=== PATIENT | male | born 2000 | race African-American/Black ===

== ENCOUNTER 2024-02-03 12:30 | Emergency (ER) | payer SELFPAY ==
[~2024-02-03] VITALS: Ht 180.3 cm; Wt 86.2 kg
[2024-02-03 12:32] VITALS: BP_SYST 115; PULSE 48; RESP 16; TEMP 98.2; O2SAT 96
[2024-02-03 13:31] LABS: BASOPHILS # (AUTO) 0.1 K/uL (0.0-0.2); BASOPHILS % (AUTO) 0.8 % (0.0-2.0); EOSINOPHILS # (AUTO) 0.2 K/uL (0.0-0.4); EOSINOPHILS % (AUTO) 2.5 % (0.0-4.0); HEMATOCRIT 38.2 % (36-54); HEMOGLOBIN 12.6 g/dL (14.0-18.0); LYMPHOCYTES # (AUTO) 2.3 K/uL (1.0-5.5); LYMPHOCYTES % (AUTO) 29.4 % (20.5-51.5); MEAN CORPUSCULAR HEMOGLOBIN 31 pg (27-31); MEAN CORPUSCULAR HGB CONC 33 % (32-36); MEAN CORPUSCULAR VOLUME 93 fL (79.0-98.0); MONOCYTES # (AUTO) 0.8 K/uL (0.0-1.0); MONOCYTES % (AUTO) 9.9 % (1.7-9.3); NEUTROPHILS # (AUTO) 4.4 K/uL (1.8-7.7); NEUTROPHILS % (AUTO) 57.4 % (40.0-70.0); PLATELET COUNT (AUTO) 250 K/uL (130-430); RED BLOOD CELL COUNT(AUTO) 4.11 MIL/uL (4.2-6.2); RED CELL DISTRIBUTION WIDTH 12.7 % (9.0-15.0); WHITE BLOOD COUNT (AUTO) 7.7 K/uL (4.8-10.8)
[2024-02-03 13:51] LABS: PROTHROMBIN TIME 10.4 SECS (9.5-12.5)
[2024-02-03 14:03] LABS: ANION GAP 4 (5-15); CALCIUM 8.6 mg/dL (8.4-11.0); CARBON DIOXIDE 31 mmol/L (23-29); CHLORIDE 106 mmol/L (98-107); CREATININE 0.96 mg/dL (0.55-1.30); GFR AFRICAN AMERICAN 124 mL/min (>90); GLUCOSE 85 mg/dL (74-106); SODIUM SERUM 141 mmol/L (136-145); UREA NITROGEN, BLOOD 12 mg/dL (8-21)
[2024-02-03 14:05] LABS: GFR NON AFRICAN-AMERICAN 102 mL/min (>90)
[2024-02-03 14:10] LABS: ALANINE AMINOTRANSFERASE 16 U/L (12-78); ALBUMIN 3.2 g/dL (3.4-4.8); ASPARTATE AMINOTRANSFERASE 19 U/L (10-37); BILIRUBIN,DIRECT 0.2 mg/dL (0.0-0.3); CREATINE KINASE, TOTAL 132 U/L (39-308); TOTAL BILIRUBIN 1.1 mg/dL (0.0-1.0); TOTAL PROTEIN, SERUM 6.7 g/dL (6.4-8.3)
[2024-02-03 14:12] LABS: ALCOHOL, BLOOD < 3 mg/dL (<10)
[2024-02-03 17:15] VITALS: BP_SYST 105; PULSE 65; RESP 16; TEMP 98.4; O2SAT 98
== END 2024-02-03 17:15 | disposition home or self-care (01) ==
LOC: SED 12:30
DX: F19.229 Other psychoactive substance dependence with intoxication, unspecified (principal)
CPT/HCPCS: 99285; 71045; 80076; 80048; 82550; 85025; 85610; 85730; 84484; 36415; 93005; G0482